=== PATIENT | female | born 1995 | race Caucasian/White ===

== ENCOUNTER 2019-02-27 08:39 | Emergency (ER) | payer MEDICAID ==
[~2019-02-27] VITALS: Ht 165.1 cm; Wt 133.8 kg
[2019-02-27 08:42] VITALS: Ht 165.1 cm; Wt 133.8 kg
[2019-02-27 09:13] VITALS: BP 119/76
== END 2019-02-27 09:13 | disposition home or self-care (01) ==
LOC: ED 08:39
DX: H66.92 Otitis media, unspecified, left ear (principal); H61.22 Impacted cerumen, left ear

== ENCOUNTER 2020-05-14 11:54 | Emergency (ER) | payer BC, MEDICAID ==
[~2020-05-14] VITALS: Ht 165.1 cm; Wt 127.5 kg
[2020-05-14 12:28] VITALS: Ht 165.1 cm; Wt 127.5 kg
[2020-05-14 14:14] LABS: BASOPHIL % 0.3 % (0-2); CALCIUM 9.3 mg/dL (8.5-10.1); CARBON DIOXIDE 27.2 mmol/L (21-32); CHLORIDE SERUM 103 mmol/L (98-107); CREATININE SERUM 0.8 mg/dL (0.6-1.0); GFR1 > 60 mL/min; GLUCOSE SERUM 88 mg/dL (74-106); PLATELET COUNT 309 x10^3mcL (130-400); POTASSIUM SERUM 3.5 mmol/L (3.5-5.1); SODIUM SERUM 138 mmol/L (136-145)
[2020-05-14 14:19] LABS: ALBUMIN 3.8 g/dL (3.4-5.0); ALKALINE PHOSPHATASE 81 U/L (46-116); ALT/SGPT 36 U/L (14-59); AST/SGOT 17 U/L (15-37); BILIRUBIN TOTAL 0.3 mg/dL (0.20-1.00); LIPASE 70 IU/L (73-393)
[2020-05-14 14:25] LABS: RED CELL DISTRIBUTION WIDTH 14.7 % (11.5-14.5)
[2020-05-14 14:29] LABS: TOTAL PROTEIN, SERUM 8.5 g/dL (6.4-8.2)
[2020-05-14 17:21] VITALS: BP 117/76
== END 2020-05-14 17:21 | disposition home or self-care (01) ==
LOC: ED 11:54
PROVIDERS: Emergency Medicine
DX: R10.817 Generalized abdominal tenderness (principal); R10.33 Periumbilical pain; N93.9 Abnormal uterine and vaginal bleeding, unspecified
CPT/HCPCS: J7030; Q9967

== ENCOUNTER 2020-09-23 15:37 | Emergency (ER) | payer BC, MEDICAID ==
[~2020-09-23] VITALS: Ht 165.1 cm; Wt 127.0 kg
[2020-09-23 15:45] VITALS: BP 137/83; Ht 165.1 cm; Wt 127.0 kg
== END 2020-09-23 18:08 | disposition home or self-care (01) ==
LOC: ED 15:37
DX: S42.292A Other displaced fracture of upper end of left humerus, initial encounter for closed fracture (principal); S80.12XA Contusion of left lower leg, initial encounter; V49.09XA Driver injured in collision with other motor vehicles in nontraffic accident, initial encounter; Y93.I9 Activity, other involving external motion; Y92.413 State road as the place of occurrence of the external cause; Y99.8 Other external cause status
CPT/HCPCS: J1885